=== PATIENT | female | born 1960 | race Two or more races ===

== ENCOUNTER 2016-12-25 19:33 | Inpatient (IN) | payer OTHER ==
[2016-12-25] MEDS ORDERED: NS 1,000 ML IV ONE ×2 (19:42→21:35)
--- NOTE | 2016-12-25 19:49 | EDPHY ---
HPI/HX/ROS/PE/MDM Narrative: CHIEF COMPLAINT: Syncope, headache HPI: The patient is a 56-year-old female with a history of hypertension. She was in her usual state of health until just prior to arrival when she told her daughter she felt dizzy and nauseous then developed severe left-sided headache. Her states that she had a similar headache approximately 2 weeks ago. Daughter states that the patient may have passed out for a brief period of time. On my exam, the patient's only complaint is left-sided headache. She was brought to the emergency department by emergent ambulance for report of isolated ST elevation in 1 lead, but there is no evidence of this on our EKG. REVIEW OF SYSTEMS: Aside from elements discussed in the HPI, a comprehensive 10-point review of systems was reviewed and is negative. PMH: Includes hypertension. No history of stroke. SOCIAL HISTORY: . Denies alcohol or drug abuse. PHYSICAL EXAM: General:Patient is alert, in no acute distress. She appears pale, ill- appearing. ENT:Eyes are normal to inspection. ENT inspection normal. No nystagmus. Neck: Normal inspection. Full range of motion. Respiratory:No respiratory distress. Breath sounds normal bilaterally. Cardiovascular: Regular rate and rhythm. Strong peripheral pulses. Normal cap refill. Abdomen:The abdomen is nontender to palpation. There are no peritoneal signs. There are normal bowel sounds. Back: Normal to inspection. No tenderness to palpation. Skin: Normal color. No rash. Warm and dry. Extremities: Normal appearance. Full range of motion. Neuro:Normal motor function. Normal sensory function. ED Course: Patient treated with IVNS and IV labetolol. On re-evaluation at 10pm, patient still complains of severe headache and feels quite nauseated. On re-evaluation at 10:30pm, patient still with headache but overall skin tone has improved. Admitted patient to Dr. Irizarry at 10:40pm I personally spent a total of 35 minutes of critical care time in obtaining history, performing a physical exam, bedside monitoring of interventions, collecting and interpreting tests and discussion with consultants but not including time spent performing procedures. This time was exclusive of any involvement by Physician Bulldozer Mechanic. Organ system(s) at risk include: GYNECOLOGIST MDM: This patient presents with severe unilateral headache associated with very elevated BP, vomiting and syncope. The underlying etiology is unclear but I see no evidence of ACS given negative ECG and troponin, and CT/CTA of brain is negative for acute stroke or bleed, which fits with lack of focal deficit. Given ongoing symptomatology in setting of poorly controlled HTN, patient requires admission to the hospital. - Data Points Imaging Results: Imaging Impressions Head CT 12/25/16 19:42 Impression: CT head without and with contrast: 1. No acute abnormalities. CTAs: 1. No cervical or intracranial vascular abnormalities. Dr. Downs discussed these findings by telephone with Jozef Bray MD at 21:25. Head CTA 12/25/16 19:42 Impression: CT head without and with contrast: 1. No acute abnormalities. CTAs: 1. No cervical or intracranial vascular abnormalities. Dr. Downs discussed these findings by telephone with Jozef Bray MD at 21:25. Neck CTA 12/25/16 19:42 Impression: CT head without and with contrast: 1. No acute abnormalities. CTAs: 1. No cervical or intracranial vascular abnormalities. Dr. Downs discussed these findings by telephone with Jozef Bray MD at 21:25. Laboratory Results: Laboratory Results 12/25/16 19:40 12/25/16 19:40 12/25/16 12/25/16 12/25/16 19:40 19:40 19:40 WBC RBC Hgb POC Hgb Hct POC Hct MCV MCH MCHC RDW Plt Count MPV Neut % (Auto) Lymph % (Auto) [place] % (Auto) Eos % (Auto) Baso % (Auto) Nucleat RBC Rel Count Absolute Neuts (auto) Absolute Lymphs (auto) Absolute Monos (auto) Absolute Eos (auto) Absolute Basos (auto) Absolute Nucleated RBC Immature Gran % Immature Gran # PT Pending INR Pending APTT Pending POC Sodium Sodium 142 mEq/L mEq/L (134-144) POC Potassium Potassium 3.3 mEq/L L mEq/L (3.5-5.2) POC Chloride Chloride 104 mEq/L mEq/L (97-110) Carbon Dioxide 23 mEq/l mEq/l (22-31) Anion Gap 15 mEq/L mEq/L (8-16) POC BUN BUN 13 mg/dL mg/dL (7-23) Creatinine 0.6 mg/dL mg/dL (0.6-1.0) POC Creatinine Estimated GFR > 60 Glucose 135 mg/dL H mg/dL (70-100) POC Glucose Calcium 9.1 mg/dL mg/dL (8.5-10.4) Total Bilirubin Pending Conjugated Bilirubin Pending Unconjugated Bilirubin Pending AST Pending ALT Pending Alkaline Phosphatase Pending Troponin I < 0.012 ng/mL ng/mL (0.000-0.034) Total Protein Pending Albumin Pending 12/25/16 12/25/16 19:40 19:36 WBC 7.66 10^3/uL 10^3/uL (3.80-9.50) RBC 4.57 10^6/uL 10^6/uL (4.18-5.33) Hgb 13.4 g/dL g/dL (12.6-16.3) POC Hgb 14.6 gm/dL gm/dL (12.6-16.3) Hct 40.5 % % (38.0-47.0) POC Hct 43 % % (38-47) MCV 88.6 fL fL (81.5-99.8) MCH 29.3 pg pg (27.9-34.1) MCHC 33.1 g/dL g/dL (32.4-36.7) RDW 14.5 % % (11.5-15.2) Plt Count 176 10^3/uL 10^3/uL (150-400) MPV 11.8 fL H fL (8.7-11.7) Neut % (Auto) 44.4 % % (39.3-74.2) Lymph % (Auto) 45.2 % H % (15.0-45.0) [place] % (Auto) 6.5 % % (4.5-13.0) Eos % (Auto) 2.9 % % (0.6-7.6) Baso % (Auto) 0.5 % % (0.3-1.7) Nucleat RBC Rel Count 0.0 % % (0.0-0.2) Absolute Neuts (auto) 3.40 10^3/uL 10^3/uL (1.70-6.50) Absolute Lymphs (auto) 3.46 10^3/uL H 10^3/uL (1.00-3.00) Absolute Monos (auto) 0.50 10^3/uL 10^3/uL (0.30-0.80) Absolute Eos (auto) 0.22 10^3/uL 10^3/uL (0.03-0.40) Absolute Basos (auto) 0.04 10^3/uL 10^3/uL (0.02-0.10) Absolute Nucleated RBC 0.00 10^3/uL 10^3/uL (0-0.01) Immature Gran % 0.5 % % (0.0-1.1) Immature Gran # 0.04 10^3/uL 10^3/uL (0.00-0.10) PT INR APTT POC Sodium 143 mEq/L mEq/L (134-144) Sodium POC Potassium 3.1 mEq/L L mEq/L (3.3-5.0) Potassium POC Chloride 106 mEq/L mEq/L (97-110) Chloride Carbon Dioxide Anion Gap POC BUN 14 mg/dL mg/dL (7-23) BUN Creatinine POC Creatinine 0.5 mg/dL L mg/dL (0.6-1.0) Estimated GFR Glucose POC Glucose 140 mg/dL H mg/dL (70-100) Calcium Total Bilirubin Conjugated Bilirubin Unconjugated Bilirubin AST ALT Alkaline Phosphatase Troponin I Total Protein Albumin Medications Given: Discontinued Medications Sodium Chloride (Ns) 1,000 mls @ 0 mls/hr IV EDNOW ONE; Wide Open PRN Reason: Protocol Stop: 12/25/16 19:43 Last Admin: 12/25/16 19:45 Dose: 1,000 mls Sodium Chloride (Ns) 1,000 mls @ 0 mls/hr IV EDNOW ONE; Wide Open PRN Reason: Protocol Stop: 12/25/16 21:36 Last Admin: 12/25/16 21:44 Dose: 1,000 mls Labetalol HCl (Trandate Injection) 10 mg IVP EDNOW ONE Stop: 12/25/16 21:46 Last Admin: 12/25/16 21:47 Dose: 10 mg Ondansetron HCl (Zofran) 4 mg IVP EDNOW ONE Stop: 12/25/16 20:05 Last Admin: 12/25/16 20:05 Dose: 4 mg Point of Care Test Results: 12/25/16 19:36 POC Sodium 143 POC Potassium 3.1 L POC Chloride 106 POC BUN 14 POC Creatinine 0.5 L POC Glucose 140 H General Initial Vital Signs: Initial Vital Signs Heart Rate 69 12/25/16 19:42 Respiratory Rate 20 12/25/16 19:42 Blood Pressure 203/95 H 12/25/16 19:42 O2 Sat (%) 95 12/25/16 19:42 O2 Delivery Mode Nasal Cannula O2 (L/minute) 2 Allergies/Adverse Reactions: No Known Allergies Allergy (Unverified 12/25/16 19:48) Home Medications: Medication Instructions Recorded Enalapril Maleate [Vasotec 20 MG 20 mg PO HS 12/25/16 (*)] Departure - Departure Disposition: [facility] Inpatient Acute Clinical Impression: Headache, Hypertensive emergency Condition: Serious
[2016-12-25] MEDS ORDERED: IOPAMIDOL (ISOVUE 370) 100 ML BTL IV ONE (19:51)
--- NOTE | 2016-12-25 19:53 | CPEKG ---
Heart Rate: 70 RR Interval: 857 P-R Interval: 140 QRSD Interval: 92 QT Interval: 392 QTC Interval: 423 P Chadron: -5 QRS Chadron: -10 T Wave Chadron: 10 EKG Severity - ABNORMAL ECG - EKG Impression: SINUS RHYTHM EKG Impression: LEFT VENTRICULAR HYPERTROPHY Electronically Signed By: Lobo Salcedo 27-Dec-2016 08:09:10
[2016-12-25 19:59] LABS: % IMMATURE GRANULYOCYTES 0.5 % (0.0-1.1); ABSOLUTE IMMATURE GRANULOCYTES 0.04 10^3/uL (0.00-0.10); ADD DIFF? NO; ADD MORPH? NO; ADD SCAN? NO; ATYPICAL LYMPHOCYTE FLAG 10 (0-99); FRAGMENT RBC FLAG 0 (0-99); HEMATOCRIT 40.5 % (38.0-47.0); HEMOGLOBIN 13.4 g/dL (12.6-16.3); LEFT SHIFT FLG 0 (0-99); LIPEMIA HEMOLYSIS FLAG 80 (0-99); MEAN CELL HEMOGLOBIN 29.3 pg (27.9-34.1); MEAN CELL HEMOGLOBIN CONCENTR. 33.1 g/dL (32.4-36.7); MEAN CELL VOLUME 88.6 fL (81.5-99.8); MEAN PLATELET VOLUME 11.8 fL (8.7-11.7); PLATELET CLUMPS FLAG 10 (0-99); PLATELET COUNT 176 10^3/uL (150-400); RED BLOOD CELL COUNT 4.57 10^6/uL (4.18-5.33); RED CELL DISTRIBUTION WIDTH 14.5 % (11.5-15.2)
[2016-12-25] MEDS ORDERED: ONDANSETRON 4 MG/2 ML VIAL ONE (20:04)
[2016-12-25] MEDS ORDERED: ONDANSETRON 4 MG/2 ML VIAL IVP ONE (20:04)
[2016-12-25 20:12] LABS: ANION GAP 15 mEq/L (8-16); CALCIUM 9.1 mg/dL (8.5-10.4); CARBON DIOXIDE 23 mEq/l (22-31); CHLORIDE 104 mEq/L (97-110); CREATININE 0.6 mg/dL (0.6-1.0); GLOMERULAR FILTRATION RATE > 60; GLUCOSE 135 mg/dL (70-100); POTASSIUM 3.3 mEq/L (3.5-5.2); SODIUM 142 mEq/L (134-144)
[2016-12-25 20:24] LABS: TROPONIN I < 0.012 ng/mL (0.000-0.034)
[2016-12-25] MEDS ORDERED: LABETALOL HCL 50 MG/10 ML SYR IVP ONE (21:35)
[2016-12-25] MEDS ORDERED: LABETALOL HCL 5 MG/ML 20 ML MDV IVP ONE (21:45)
[2016-12-25] MEDS ORDERED: ACETAMINOPHEN 325 MG TAB PO PRN (22:39)
[2016-12-25] MEDS ORDERED: ONDANSETRON DISINTEGRATING 4 MG TAB PO PRN (22:39)
[2016-12-25 22:41] LABS: APTT 27.5 SEC (23.0-38.0); INR 0.95 (0.83-1.16); PROTIME(PATIENT) 12.6 SEC (12.0-15.0)
[2016-12-25 22:42] LABS: ALBUMIN 4.6 g/dL (3.5-5.0); BILIRUBIN,TOTAL 0.3 mg/dL (0.1-1.4); BILIRUBIN-CONJUGATED 0.2 mg/dL (0.0-0.5); BILIRUBIN-UNCONJUGATED 0.1 mg/dL (0.0-1.1); TOTAL PROTEIN 7.5 g/dL (6.3-8.2)
--- NOTE | 2016-12-25 23:46 | GHP ---
[f rep st] HISTORY AND PHYSICAL DATE OF ADMISSION: 12/25/2016 CHIEF COMPLAINT: Headache. Syncope. HISTORY OF PRESENT ILLNESS: A 56-year-old female with a history of hypertension on single agent bloo d pressure medications that were recently changed in the last 3-4 weeks. Patient cannot accurately t ell me when she was taking before but is now taking daily enalapril. Reports being in her normal sta te of health for the several days preceding presentation. On the evening of presentation around 6:30 p.m., patient developed a headache and a tired feeling. The headache progressed over the course of the next hour or so, resulted in some nausea, dizziness and a syncopal episode. Headache was describ ed as left-sided. She did not develop any specific vision changes. No numbness. No tingling. No w eakness. Family called the EMS and the patient was brought to the emergency department for evaluatio n. In the ED, she denies any chest pain, shortness of breath, palpitations, abdominal discomfort, ch anges in her bowel habits, dysuria, lower extremity edema, fevers, chills or recent sick contacts. PAST MEDICAL HISTORY: Hypertension. SOCIAL HISTORY: She is . Denies alcohol, tobacco or illicit drugs. FAMILY HISTORY: Positive for hypertension. REVIEW OF SYSTEMS: A 10-point review of systems is negative with the exception what was reported in the HPI. PHYSICAL EXAMINATION: VITAL SIGNS: The patient presented with systolic blood pressure 217/108. Hea rt rate 76. Respiratory rate is 16. Satting 99% on 2 L. 36.5. GENERAL: This is an obese-appearin g, female in no acute distress. HEENT: Notable for moist mucous membranes. Eyes: Negativ e for any icterus. CARDIAC: Patient is regular rate and rhythm. PULMONARY: Clear to auscultation bilaterally. GASTROINTESTINAL: Positive bowel sounds. ABDOMEN: Obese but soft and nontender. MUS CULOSKELETAL: Negative for any lower extremity edema. SKIN: Negative for any rashes. NEUROLOGIC: Patient's strength is bilateral 5/5. Sensation is intact throughout. Cranial nerves 2-12 are gross ly intact. Gait was not examined. PSYCHIATRIC: She is pleasant and cooperative on interview and ex amination. LABORATORY: White count 7.6, hematocrit 40.5, platelets of 176. Creatinine is 0.6. Blood glucose o f 140. Potassium of 3.3. Troponin less than 0.012. Noncontrast CT of the head, which I personally reviewed and interpreted, shows no acute findings. CTA of the head and neck show no acute findings. EKG, which I personally reviewed and interpreted, shows a sinus rhythm with no acute ST-T changes. ASSESSMENT AND PLAN: This is a 56-year-old female presenting with headache and syncope. 1. Hypertensive urgency. Patient presented with systolic blood pressures in the 200s, associated he adache. She has received 1 dose of labetalol 10 IV in the emergency department. Her blood pressures are back to the 160s. High suspicion that the patient's enalapril is simply not potent enough to ke ep her blood pressures down. Would use labetalol as it is a medication that we can up-titrate over t jose for her as her antihypertensive needs increase. We will initiate 100 mg b.i.d. in the morning. Can use oral doses this evening if she redevelops elevated blood pressures overnight. We will admit to telemetry for close monitoring. 2. Syncope. Based on the history, it sounds most related to the severe nausea and headache she was having at that time. Neurologic imaging is unconcerning for an acute neurologic episode. We will mo nitor the patient on the PCU on telemetry. Follow her physical exam with improved blood pressure con geraldine. Have written for p.r.n. pain medications as well as antiemetics. 3. Hyperglycemia. We will add hemoglobin A1c to the patient's morning labs. 4. Prophylaxis with Lovenox. DIET: Cardiac. DISPOSITION: I expect less than 2 midnights if the patient responds well to titration of her blood p ressure regimen. We will admit as observation to the PCU. I have discussed the case with the emerge ncy room physician. Patient will be triaged to the PCU for cardiac monitoring and cardiac medication s. /[id number]/MODL
[2016-12-25] MEDS: ONDANSETRON 4 MG/2 ML VIAL IVP PRN (23:51)
[2016-12-26 04:37] LABS: COLOR YELLOW; LEUKOCYTE ESTERASE,URINE NEGATIVE (NEGATIVE); NITRITE,URINE NEGATIVE (NEGATIVE)
[2016-12-26] MEDS: ONDANSETRON 4 MG/2 ML VIAL IVP PRN ×3 (04:44→15:56)
[2016-12-26 05:53] LABS: TROPONIN I < 0.012 ng/mL (0.000-0.034)
[2016-12-26 06:00] LABS: ANION GAP 13 mEq/L (8-16); CALCIUM 8.7 mg/dL (8.5-10.4); CARBON DIOXIDE 23 mEq/l (22-31); CHLORIDE 105 mEq/L (97-110); CREATININE 0.5 mg/dL (0.6-1.0); GLOMERULAR FILTRATION RATE > 60; GLUCOSE 114 mg/dL (70-100); POTASSIUM 4.1 mEq/L (3.5-5.2); SODIUM 141 mEq/L (134-144)
[2016-12-26] MEDS: HYDROCODONE/APAP 5/325 TAB PO PRN ×3 (06:24→15:52)
[2016-12-26] MEDS: LABETALOL HCL 100 MG TAB PO SCH (06:24)
[2016-12-26] MEDS ORDERED: LABETALOL HCL 100 MG TAB PO SCH (09:00)
[2016-12-26] MEDS: ENOXAPARIN 40 MG/0.4 ML SYR SC SCH (09:16)
--- NOTE | 2016-12-26 11:21 | HOSPPROG ---
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 Syncopal event likely due to CVA. -transfer to stroke unit (no bed on 3N, going to SDU) -monitor on telemetry -echo without e/o thrombus -had CTA head/neck yesterday, carotids are patent -Full dose ASA now and cont daily -Add statin and check lipids -Neurology consult -PT/OT, speech evals (NPO until passes swallow) Hypertensive emergency - initially treated with PO Labetalol. -will allow permissive hypertension given acute/subacute CVA -PRN labetalol for sbp >220 / dbp >120 -begin BP lowering tomorrow pending neurology recs DVT PPLX - Lovenox Full code Dispo - change to inpt for ongoing management of acute / subacute CVA, transferred to SDU Subjective: Pt is dizzy, continues to have N/V. States she feels like she is floating and dizziness worse with attempts at ambulation. +blurred vision. Objective: Vital Signs Temp Pulse Resp BP Pulse Ox 36.8 C 66 14 155/79 H 87 L 12/26/16 08:00 12/26/16 10:15 12/26/16 08:00 12/26/16 10:15 12/26/16 10:15 Laboratory Results 12/26/16 04:10 12/25/16 12/26/16 12/27/16 05:59 05:59 05:59 Intake Total 2100 Output Total 690 400 Balance 1410 -400 PT 12.6 SEC (12.0-15.0) 12/25/16 19:40 INR 0.95 (0.83-1.16) 12/25/16 19:40 - Physical Exam Constitutional: uncomfortable Eyes: PERRL Ears, Nose, Mouth, Throat: moist mucous membranes Cardiovascular: regular rate and rhythym, no murmur, rub, or gallop Respiratory: no respiratory distress, clear to auscultation Gastrointestinal: normoactive bowel sounds, soft, non-tender abdomen Skin: warm Musculoskeletal: abnormal gait Neurologic: AAOx3, other (No facial droop, pronator drift negative, 5/5 muscle strength b/l UE's and LE's) ICD10 Worksheet Patient Problems: Problems Problem Status Onset Headache Acute Hypertensive emergency Acute
[2016-12-26] MEDS: ATORVASTATIN CALCIUM 40 MG TAB PO SCH (13:13)
[2016-12-26] MEDS: ASPIRIN 325 MG TAB PO SCH (13:13)
[2016-12-26 14:11] LABS: CHOLESTEROL 197 mg/dL (140-220); CHOLESTEROL/HDL RATIO 3.18 RATIO (1.00-4.44); HIGH DENSITY LIPOPROTEIN 62 mg/dL (40-85); LDL/HDL RATIO 2.02 RATIO (1.00-3.22); LOW DENSITY LIPOPROTEIN 125 mg/dL (80-100); NON-HIGH DENSITY LIPOPROTEIN 135 mg/dL (90-129); TRIGLYCERIDE 52 mg/dL (35-135); VERY LOW DENSITY LIPOPROTEINS 10 mg/dL (8-25)
--- NOTE | 2016-12-26 14:55 | ASMTCMCOM ---
CM Note CM Note Notes: Pt is a 56 y/o female admitted w/ hypertension, dizziness and nausea. CM consulted w/ VERO Asher regarding pts care. PT/OT are ordered and awaiting recommendations. CM to follow. Date Signed: 12/26/2016 02:54 PM Electronically Signed By:SULEMAN Villalobos
--- NOTE | 2016-12-26 16:56 | ECHO ---
[email or web address] [address] [address] Main: [phone] Fax: Transthoracic Echocardiogram Name: ABENA ZAIDI MR#: [id number] Study Date: 12/26/2016 Study Time: 02:38 PM Date of : 1960 Age: 56 year(s) Height: 157.5 cm (62 in.) Weight: 86.18 kg (190 lb.) BSA: 1.87 m2 Gender: Female Examination: Echo with Agitated Saline Indication: CVA r/o PFO Image Quality: Contrast: I.V. dose of agitated saline Requested by: Radha Maria BP: 164 mmHg/99 mmHg Heart Rate: 64 bpm Rhythm: Indication: CVA r/o PFO Procedure Staff Head Coach: Anna Bravo Reading Physician: Annetta Sanchez Conclusions: Normal size left ventricle. Normal global systolic LV function. EF calculated at 65 %. No regional wall motion abnormality. An agitated saline study was performed and was negative for intracardiac shunting. Trivial to mild mitral regurgitation. Pulmonary artery pressure is not obtained due to inadequate TR jet. There is no previous echocardiogram for comparison. No obvious cardiac source of embolism Measurements: Chambers Valvular Assessment AV/MV Valvular Assessment TV/PV Normal Normal Normal Name Value Range Name Value Range Name Value Range Ao Hortencia (MM): 3.2 cm (2.2 cm-3.7 AV Vmax: 1.60 m/s (1 m/s-1.7 PV Vmax: 1.09 cm/s (0.6 m/s-0.9 cm) m/s) m/s) IVSd (2D): 1.2 cm (0.6 cm-1.1 AV maxP mmHg ( - ) PV PGmax: 5 mmHg ( - ) cm) LVOT Vmax: 1.14 m/s (0.7 m/s-1.1 LVDd (2D): 3.9 cm (3.9 cm-5.3 m/s) cm) MV E Vmax: 0.93 cm/s ( - ) LVDs (2D): 2.7 cm (2.1 cm-4 MV A Vmax: 1.12 cm/s ( - ) cm) MV E/A: 0.83 ( - ) LVPWd (2D): 1.0 cm ( - ) LVEF (BP): 65 % (>=55 %) RVDd(2D): 2.9 cm (1.9 cm-3.8 cmmm) Continued Measurements: Chambers Valvular Assessment AV/MV Name Value Name Value Patient: ABENA ZAIDI Study Date: 12/26/2016 Page 1 of 2 02:38 PM LA Area: 22.9 cm2 MV DecTime: 182 LA Volume: 56 ml MV E/E' Septal: 20.30 LA Volume Index: 29.9 ml/m2 MV E/E' Lateral: 13.20 RA Area: 12.0 cm2 Additional Vessels Name Value Ao Ascendin.1 cm Findings: Left Ventricle: Normal size left ventricle. Normal global systolic LV function. Prominient papillary muscle noted. EF calculated at 65 %. No regional wall motion abnormality. Right Ventricle: Normal size right ventricle. Normal RV function. Left Atrium: The left atrium is normal in size. An agitated saline study was performed and was negative for intracardiac shunting. Right Atrium: The right atrium is normal in size. Mitral Valve: The mitral valve is normal in appearance. Trivial to mild mitral regurgitation. Aortic Valve: The aortic valve is tri-leaflet and functions normally. There is no aortic valve regurgitation. Tricuspid Valve: The tricuspid valve appears normal. There is no significant tricuspid valve regurgitation. Pulmonary artery pressure is not obtained due to inadequate TR jet. Pulmonic Valve: Pulmonary valve not well visualized. Pericardium: No pericardial effusion. (No Signature Object) Patient: ABENA ZAIDI Study Date: 12/26/2016 Page 2 of 2 02:38 PM [id number]
[2016-12-26] MEDS ORDERED: ONDANSETRON 4 MG/2 ML VIAL IVP PRN (19:40)
[2016-12-26] MEDS ORDERED: PROMETHAZINE HCL 25 MG/ML INJ IVP PRN (19:40)
[2016-12-26] MEDS: HYDROmorphONE/DILAUDID 2 MG/ML INJ IVP PRN ×2 (19:56→23:12)
[2016-12-27] MEDS: HYDROmorphONE/DILAUDID 2 MG/ML INJ IVP PRN (05:50)
[2016-12-27] MEDS: ONDANSETRON 4 MG/2 ML VIAL IVP PRN (08:36)
--- NOTE | 2016-12-27 08:37 | HOSPPROG ---
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 Carotids patent. Pt seen and examined with Neurology this am. Query embolic source with multiple sites. -cont to monitor on telemetry -echo without e/o thrombus -Cont ASA, statin -Dexamethasone started by Neurology -PT/OT Hypertension - Permissive hypertension yesterday. Discussed with neurology, who recommends normal BP control at this point. -Resume PO Labetalol, which is a new med for her -Cont outpt Enalapril -Goal BP <140/90 Headache / Tonsillar herniation - Increased pain today. Has known chiari malformation. -STAT head CT this am without contrast neg for bleed, but now with tonsillar herniation ?due to edema from cerebellar stroke + chiari malformation -Neurosurgery consulted upon receiving CT results Poor oral intake - passed swallow eval, but not eating due to N/V -start maintenance fluids DVT PPLX - Lovenox Full code Dispo - change to inpt for ongoing management of acute / subacute CVA, now with tonsillar herniation Subjective: Pt c/o increased headache, double vision, ongoing N/V. Nausea worse when she opens her eyes. Unable to ambulate. Not eating/drinking due to nausea. No fevers. Objective: Vital Signs Temp Pulse Resp BP Pulse Ox 37.4 C 58 L 12 165/65 H 97 12/27/16 08:00 12/27/16 08:00 12/27/16 08:00 12/27/16 08:00 12/27/16 08:00 12/26/16 12/27/16 12/28/16 05:59 05:59 05:59 Intake Total 240 Output Total 25 Balance 215 PT 12.6 SEC (12.0-15.0) 12/25/16 19:40 INR 0.95 (0.83-1.16) 12/25/16 19:40 - Physical Exam Constitutional: uncomfortable Eyes: PERRL Ears, Nose, Mouth, Throat: moist mucous membranes Cardiovascular: regular rate and rhythym Respiratory: no respiratory distress, clear to auscultation Gastrointestinal: normoactive bowel sounds Musculoskeletal: full muscle strength Neurologic: AAOx3, other (+diplopia in all visual posadas, sensation intact, 5/5 muscle strength UE's and LE's) Psychiatric: interacting appropriately ICD10 Worksheet Patient Problems: Problems Problem Status Onset Headache Acute Hypertensive emergency Acute
[2016-12-27] MEDS ORDERED: *PHM DO NOT USE-DEXAMETHASONE 0.2 MG/ML IV PED/NEWBORN SYR IV SCH (09:00)
[2016-12-27] MEDS: DEXAMETHASONE 4 MG/ML VIAL IVP SCH ×2 (09:14→21:04)
[2016-12-27] MEDS: GABAPENTIN 100 MG CAP PO SCH ×4 (09:15→21:04)
[2016-12-27] MEDS: POTASSIUM Cl (KCl) 20 MEQ in D5W NS 1,000 ML IV SCH ×2 (09:15→18:05)
--- NOTE | 2016-12-27 09:57 | GCON ---
[f rep st] CONSULTATION NEUROLOGIC CONSULTATION REFERRING PHYSICIAN: Gela Irizarry MD HISTORY: The patient is a 56-year-old woman who I am asked to see in neurologic consultation for str jah. She presented to the emergency room on December 25. She has a history of hypertension, and ap parently has had some recent changes in medications. She had been doing well prior to the evening of presentation, which was 2 evenings ago. At 6:30 p.m. she had significant headache and feeling tired . Within an hour she was having nausea, dizziness, and had an episode of loss of consciousness. Pre dominantly left-sided headache without any clear-cut exacerbating or alleviating factors. She was no t initially complaining of any vision problems, but now she says she has feelings of dizziness associ ated with double vision when she moves her eyes in most directions of gaze. She had not had any rece nt trauma or illness. She was not noticing weakness. EMS was called, and she was brought to the [facility] room for evaluation. Her 10-point review of systems is negative, including no chest pain, pal pitations, or shortness of breath. Since hospitalization she has continued to have ongoing symptoms with increasing headache and increasing pain episodes that come in waves of sharp intense pains, whic h can be diffuse. She initially had a head CT obtained, and this was unremarkable, and CT angiogram showed no acute findings. Subsequent imaging with brain MRI shows evidence of acute stroke involving predominantly the left pos terior cerebellum, and a small amount of change in the right occipital lobe. She has a Chiari malfor mation, which has been seen in the past. Compared to 2005, there is no significant change. She has empty sella syndrome as well. PAST MEDICAL HISTORY: Notable for hypertension. 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 FAMILY HISTORY: Hypertension. SOCIAL HISTORY: She is . No smoking, drug use, or alcohol. MEDICATIONS: Prior to admission: Enalapril 20 mg at night. In the hospital she is getting p.r.n. n ausea medications, as well as hydrocodone as needed or Dilaudid IV as needed for pain. Aspirin, Lipi tor. ALLERGIES: No known drug allergies. PHYSICAL EXAM: VITAL SIGNS: The blood pressure is 165/65, pulse of 58, respirations 12, temperature 37.4. Her original blood pressure in the first several hours of coming in on the was as high a s 217 systolic. GENERAL: Well developed, overweight, in no acute distress. NECK: Supple with no b ruits or masses. CARDIAC: Regular rate and rhythm. No murmur. NEUROLOGIC: The patient's NIH stro ke scale is 0. Pupils are 3 mm and reactive. Funduscopic exam, I cannot view adequately. No obviou s visual field loss. Extraocular movements are intact, although she complains of double vision in se veral directions of gaze. Normal facial sensation and strength. Palate elevates symmetrically. Ton emanuel protrudes midline. Hearing is preserved. No weakness of head turning or shoulder shrug, but mov ements generate nausea and increasing headache. Motor exam reveals normal muscle bulk and tone with 5/5 strength, and no abnormal movements. She moves very slowly on finger to nose, but she is not elan xic in the upper extremities. I did not assess her gait due to the [facility], but it was reported yesterday that she would move slowly and a little bit ataxic. Reflexes ar e 1+ and symmetric with no pathologic reflexes. Sensation in the extremities is intact for temperatu re and light touch. LABORATORY DATA: Diagnostic studies as outlined above with unremarkable CBC, normal INR. Unremarkab le chemistries with LDL cholesterol of 125. Unremarkable urinalysis. She has also had echocardiogram. This study shows normal ejection fraction, and no evidence of an in tracardiac shunt on bubble study. No significant valvular anomalies. IMPRESSION: The patient has experienced an acute ischemic stroke predominantly in the left cerebellu m, but also a small amount in the right occipital region. As to whether this is a local thrombosis v ersus embolic phenomenon, it is hard to say for sure. It certainly posterior circulation distributio n. We do not see evidence of a dissection despite the acute pain she is having. A percentage of str okes definitely have significant headache, and I think that is why she has this headache. Because it is in the posterior circulation with cerebellum involved, we will obtain a repeat head CT this kody dawkins to make sure there is not any significant edema occurring. Her headaches are further potentially triggered by having a Chiari malformation. This is not a new problem, but in the setting of an acute stroke some of the increased pressure might be contributing as well. For this episodic, sharp pain I am going to add gabapentin 100 mg 3 times per day. With the fact that she has the Chiari malformat ion, I am going to give her a few doses of Decadron to see if that also calms down any associated swe lling that might be occurring. We will continue to monitor her closely for any significant clinical changes. I spoke with her via the wet end operator, and her was present as well, and I discussed t hat the anticipation is for gradual improvement of this, but we will have to spend some time helping her with the symptoms that she is getting through this acute phase. I agree with antiplatelet therap y at this point. /[id number]/MODL
[2016-12-27] MEDS: ATORVASTATIN CALCIUM 40 MG TAB PO SCH (12:15)
[2016-12-27] MEDS: ENOXAPARIN 40 MG/0.4 ML SYR SC SCH (12:15)
[2016-12-27] MEDS: ASPIRIN 325 MG TAB PO SCH (12:15)
--- NOTE | 2016-12-27 13:25 | NEUROPROG ---
Assessment: Pt is better since decadron and gabapentin with mild headache not having significant nausea currently and equal pupils, no diplopia. CT shows more edema and some 4th ventricle compression. I want to consult neurosurgery in case there is need for decompression if swelling gets worse especially with known Chiari. Objective: Vital Signs Temp Pulse Resp BP Pulse Ox 37.4 C 64 20 162/71 H 100 12/27/16 08:00 12/27/16 12:00 12/27/16 12:00 12/27/16 12:00 12/27/16 12:00 12/26/16 12/27/16 12/28/16 05:59 05:59 05:59 Intake Total 240 Output Total 25 Balance 215 PT 12.6 SEC (12.0-15.0) 12/25/16 19:40 INR 0.95 (0.83-1.16) 12/25/16 19:40 Allergies/Adverse Reactions: No Known Allergies Allergy (Unverified 12/25/16 19:48)
--- NOTE | 2016-12-27 14:00 | GCON ---
[f rep st] CONSULTATION NEUROSURGERY CONSULTATION NOTE CHIEF COMPLAINT: Worsening headaches post cerebellar and occipital stroke. HISTORY OF PRESENT ILLNESS: This is a 56-year-old female with a history of hypertension, who present ed to the [facility] ER on 12/25/2016 with development of a headache and a tired feeling. The headache progressed over the next hour or so and resulted in some dizziness and nausea and a syncopa l episode as well. She denied any vision changes. The family called EMS services and the patient wa s brought to the emergency department where a noncontrast head CT was performed and showed no acute f indings and a CT of the head and neck were also performed which showed no acute findings, however, an MRI of the brain was then performed and showed a subacute infarct involving the posterior half of th e cerebellum on the left as well as a small linear focus anteriorly and an additional subacute smalle r cortical infarct on the right occipital lobe posteriorly. Also incidentally found was a note of a Chiari 1 malformation. She has been seen by the hospitalist service and has been admitted here for t he last 2 days for management of this stroke. However, this morning she started having a worsening o f headache and an episode of emesis and a repeat head CT was performed this morning over concern for possible increase in bleeding or hydrocephalus. On my consultation, currently the patient is resting comfortably. Her states that this morning she started having worsening headache with 1 epis ode of emesis. He states that she has since then finally been able to rest a few hours. When I talk to the patient, she states that she just has a pounding headache. She denies any vision changes, an y numbness, tingling, weakness in her arms or legs. She denies any nausea at the moment. She and he r deny any increasing somnolence. REVIEW OF SYSTEMS: All pertinent positive and negative review of systems were reviewed and are as st ated in the HPI. PAST MEDICAL HISTORY: Consistent for hypertension and headaches. CURRENT MEDICATIONS: Include enalapril maleate also known as Vasotec 20 mg p.o. h.s. FAMILY HISTORY: Significant for hypertension. SOCIAL HISTORY: Patient is with her at the bedside today. She is mostly Cymro-spe aking but does understand some Turkmen and he is translating for her today. She denies any alcohol u se, any tobacco use or any other illicit drug use. OBJECTIVE: VITAL SIGNS: Blood pressure 162/71, heart rate 64, respiratory rate 20, O2 sat is 100% o n 2 L by nasal cannula. HENT: Head is normocephalic, atraumatic. GENERAL: The patient is alert to person, place, and year. She is somewhat somnolent but is awake for my exam and awake and alert the whole time. She is conversing appropriately. Her is translating for her. EYES: Pupils ar e equal, react to light and accommodation. Extraocular muscles are intact. NEUROLOGIC: Cranial ner ves 2-12 are grossly intact. Tongue protrusion is midline. Uvula is midline. Palate rises symmetri tonia. Accessory muscles are 5/5 and equal in strength and sensation is intact in all dermatomal dis tribution of the face. Bilateral upper extremities are 5/5 and equal in strength in all muscle group s including deltoids, biceps, triceps, wrist extensors, flexors, interossei and business office technician, and bilateral l ower extremities are 5/5 in all muscle groups including quadriceps, hamstrings, dorsiflexion, plantar flexion, EHL. Babinski is negative and toes are downgoing. She has a negative pronator drift. Sen sation is intact over the neural dermatomal distribution of the body. Deep tendon reflexes are 2+ bi laterally in the patella and biceps. LABORATORY DATA: Labs reviewed taken on December 25, 2016 reveal a white blood cell count of 7.66, red blood cell count 4.57, hemoglobin 13.4, hematocrit 40.5, platelets 176. INR of 0.95, PT 12.6, an d APTT of 27.5. A sodium of 141, potassium 4.1, chloride 105, carbon dioxide 23, anion gap 13, BUN 8 , creatinine 0.5, glucose 114, calcium 8.7. Troponin less than 0.12. DIAGNOSTIC IMAGING REVIEW: Images taken on 12/25/[address] without contrast that initial ly showed no acute findings. A cervical CTA showed stenosis of the carotid bulb, is measured based a t the NASCET criteria area of maximal stenosis compared to the cervical ICA distal to the bulb. Cervical CTA: No cervical or intracranial vascular abnormality. A head CTA was performed on 12/25/2016 and it shows no acute abnormalities. A brain MRI was performed on 12/26/2016 that shows: 1. A subacute infarct involving the posterior half of the cerebellum on the left as well as a smalle r linear focus anteriorly and additional subacute smaller cortical infarct right occipital lobe poste riorly. 2. Chiari 1 malformation is noted. 3. Stable appearance of the pituitary flattened against the floor of mildly prominent sella, compati ble with empty sella. A head CT performed on 12/27/2016 was performed due to increase in headaches and somnolence and shows : 1. A subacute infarct in the left cerebral hemisphere and right occipital lobe with mass effect of t he 4th ventricle. 2. Prior Chiari 1 malformation with possible superimposed tonsillar herniation. 3. No acute hemorrhage or hydrocephalus. ASSESSMENT AND PLAN: This is a 56-year-old female presenting 2 days ago with increasing headaches an d dizziness and was found on MRI to have a subacute infarct involving the posterior half of the cereb ellum on the left as well as a subacute smaller cortical infarct on the right occipital lobe posterio rly. This morning she had an increase of headaches and somnolence, and therefore, a repeat head CT w as performed. This head CT was reviewed by Dr. England as well and shows no evidence of hydrocephalus or a midline shift or any other new acute findings. The patient on my exam today reveals that she is neuro intact. She is having a worsening headache today which can be normal from her stroke and we w ill continue to watch her closely. I did discuss this with the and stated that should she be come more somnolent or have any increase in headaches we would likely repeat imaging to look for any evidence of hydrocephalus or any swelling. In this case, we would elect to do a surgical suboccipita l craniotomy for decompression. However, at this time, no neurosurgical intervention is indicated. We would suggest continuing q.2 hours neuro checks at this time. She will continue to follow up with her stroke management per Neurology. Any other questions or concerns, please contact Neurosurgery. The patient was seen by Dr. Joselito England as well at approximately 12:30 p.m. Any other questions or concerns or any changes in her neuro exam, please contact Neurosurgery immediately. /[id number]/MODL
[2016-12-27] MEDS: LABETALOL HCL 100 MG TAB PO SCH (21:04)
[2016-12-27] MEDS: ENALAPRIL MALEATE 20 MG TAB PO SCH (21:04)
[2016-12-28] MEDS: HYDROmorphONE/DILAUDID 2 MG/ML INJ IVP PRN (05:50)
[2016-12-28 06:27] LABS: ANION GAP 11 mEq/L (8-16); CALCIUM 8.8 mg/dL (8.5-10.4); CARBON DIOXIDE 24 mEq/l (22-31); CHLORIDE 108 mEq/L (97-110); CREATININE 0.5 mg/dL (0.6-1.0); GLOMERULAR FILTRATION RATE > 60; GLUCOSE 129 mg/dL (70-100); SODIUM 143 mEq/L (134-144)
--- NOTE | 2016-12-28 08:17 | NEUSURGPN ---
Assessment/Plan: A: 56 yo F with left cerebellar and right occipital stroke P: -Repeat HCT done this am, report pending, appears stable overall -Q2 hour neuro checks, monitor for any increased somnolence or worsening headaches -Stroke management per neurology -Would require suboccipital craniotomy if she develops worsening hydrocephalus -Pt d/w Dr England -Call NS with any neuro changes Subjective: Pt resting in bed, pt states she slept well. Per RN her headache this AM began after turning lights on in room and going down to CT. Objective: Awake and alert NAD VSS CN II-XII grossly intact MAEx4 Motor 5/5 BUE/BLE Urinary Catheter in Place: No - Physician Discussed Patient with : [facility] Physical Exam - Vitals, I&O, Labs I and O 12/27/16 12/28/16 12/29/16 05:59 05:59 05:59 Intake Total 240 2803 Output Total 25 350 Balance 215 2453 Weight 91 kg Intake: Oral (ml) 240 500 IV Infused (ml) 2303 POTASSIUM Cl (KCl) 20 meq 2303 In D5w Ns 1,000 ml @ 125 mls/hr IV CONT TOMAS Rx#: [id number] Output: Urine (ml) 350 Bedpan 350 Emesis (ml) 25 Other: Number of Voids Bedpan 1 4 Vital Signs Temp Pulse Resp BP Pulse Ox 36.7 C 50 L 20 133/63 H 99 12/28/16 07:28 12/28/16 07:28 12/28/16 07:28 12/28/16 07:28 12/28/16 07:28 Laboratory Results 12/28/16 06:00 ICD10 Worksheet Patient Problems: Problems Problem Status Onset Headache Acute Hypertensive emergency Acute Stroke due to embolism of cerebellar artery Acute
--- NOTE | 2016-12-28 10:01 | NEUROPROG ---
Assessment: BACKGROUND: 56 year old right-handed woman with a hx of HTN admitted for episode of posterior headache, nausea, dizziness and episode of LOC. Found to have left cerebellar and right occipital cortex acute ischemic stroke. INTERVAL HISTORY: Visit facilitated by excellent nursing iranian language translation. Still with posterior headache, though a little better with gabapentin and dexamethasone. Denies nausea/vomiting, vision loss, double vision, LOC. No new weakness, sensory loss, language/speech problems, ataxia. Hearing without change. EXAM: VS reviewed in EMR. SBPs 100s - 170s last 24h NIHSS 0 DATA: LDL 125 A1c 6 TTE no mass/shunt PERSONALLY REVIEWED/INTERPRETED DATA: MRI brain wo - acute ischemia in the left PICA territory and right occipital cortex, incidental Chiari I CTA head/neck - patent vessels CT head wo 12/28 - stable cerebellar edema without change in compression of the 4th ventricle IMPRESSION: // ACUTE ISCHEMIC STROKE // CEREBELLAR EDEMA FROM ISCHEMIC STROKE // POST-STROKE WALSH // HTN Patient with ischemic stroke of the left PICA territory of the cerebellum and the right occipital cortex. CTA showed patent posterior circulation. Pattern invokes a sense of embolism, perhaps cardioembolism into the left vertebral artery with distal movement to the basilar and the right TESTER WAFER SUBSTRATE, but similar means of embolic transit could have happened from large artery-to- artery embolization. No evidence of PFO on TTE, so paradoxical embolization ruled out. She is entering peak edema window and is high risk with posterior fossa location of stroke with evidence of early edema and mass effect on the 4th ventricle. - cont ICU monitoring with q2h neuro checks - cont current antiplatelet - goal normotension - intervene for sustained SBPs > 160 - statin for LDL goal < 70 - A1c at goal < 6.5 - cont gabapentin and dexamethasone for post-stroke WALSH - maintain euvolemia and normothermia, avoid hypoglycemia - keep HOB at 30 degrees - appreciate neurosurgery availability if needed for emergent suboccipital decompression - PT/OT/CONSTRUCTION IRONWORKER HELPER consults - stroke education - family, patient, nursing advised to call for any clinical change, especially decreased LOC, nausea/vomiting, increasing WALSH, diplopia, ataxia or anything of clinical concern - this should trigger emergent repeat CT head wo to assess for progression of cerebellar edema Patient is critically ill with ischemic stroke and cerebellar edema - at high risk for clinical deterioration that could result in further brain dysfunction. 45 mins CC time. Objective: Vital Signs Temp Pulse Resp BP Pulse Ox 36.7 C 50 L 20 133/63 H 99 12/28/16 07:28 12/28/16 07:28 12/28/16 07:28 12/28/16 07:28 12/28/16 07:28 Laboratory Results 12/28/16 06:00 12/27/16 12/28/16 12/29/16 05:59 05:59 05:59 Intake Total 240 2803 Output Total 25 350 Balance 215 2453 PT 12.6 SEC (12.0-15.0) 12/25/16 19:40 INR 0.95 (0.83-1.16) 12/25/16 19:40 Allergies/Adverse Reactions: No Known Allergies Allergy (Unverified 12/25/16 19:48)
[2016-12-28] MEDS: LABETALOL HCL 100 MG TAB PO SCH ×2 (10:03→20:15)
[2016-12-28] MEDS: GABAPENTIN 100 MG CAP PO SCH ×3 (10:03→20:16)
[2016-12-28] MEDS: ASPIRIN 325 MG TAB PO SCH (10:03)
[2016-12-28] MEDS: ATORVASTATIN CALCIUM 40 MG TAB PO SCH (10:03)
[2016-12-28] MEDS: ENOXAPARIN 40 MG/0.4 ML SYR SC SCH (10:04)
[2016-12-28] MEDS: DEXAMETHASONE 4 MG/ML VIAL IVP SCH ×2 (10:04→20:16)
[2016-12-28] MEDS: POTASSIUM Cl (KCl) 20 MEQ in D5W NS 1,000 ML IV SCH (11:45)
--- NOTE | 2016-12-28 15:47 | ASMTCMCOM ---
CM Note CM Note Notes: PT/OT recommending inpt rehab. Inpt rehab is following and will re-assess on Saturday. CM will continue to follow. Date Signed: 12/28/2016 03:46 PM Electronically Signed By:LYLE Monet
--- NOTE | 2016-12-28 16:26 | HOSPPROG ---
Hospitalist Progress Note Assessment/Plan: Subacute cerebellar and right occipital lobe CVA - Now with cerebellar edema / tonsillar herniation. Has known chiari malformation which may be contributing. Headached improved with gabapentin and dex. At risk for worsening edema, neurosurgery following. CTA neg, stroke confirmed on MRI. Carotids patent. Query embolic source with multiple sites. No A fib on tele, personally reviewed and interpreted. D/W neuro. -cont SDU, neurochecks -cont to monitor on telemetry -echo without e/o thrombus -Cont ASA, atorvastatin 80 -cont dexamethasone -stat CT for any acute neurologic changes and page neurosurgery -PT/OT Hypertension - Aiming for normotension, Goal BP <140/90 -Cont Labetalol, Enalapril -PRN IV Labetalol for SBP >160 Poor oral intake - passed swallow eval, appetite improved -dc IVF's DVT PPLX - Lovenox Full code Dispo - cont inpt for ongoing management of acute / subacute CVA, now with tonsillar herniation. Stay in SDU another night due to risk for increasing cerebellar swelling and herniation. Likely transfer to tomorrow if remains stable. Subjective: Pt feels better. Headache improved. No N/V this am. Able to open her eyes. Still dizzy with ambulation. No fevers. Objective: Vital Signs Temp Pulse Resp BP Pulse Ox 37.1 C 66 16 154/71 H 95 12/28/16 12:00 12/28/16 14:00 12/28/16 14:00 12/28/16 14:00 12/28/16 14:00 Laboratory Results 12/28/16 06:00 12/27/16 12/28/16 12/29/16 05:59 05:59 05:59 Intake Total 240 2803 Output Total 25 350 Balance 215 2453 PT 12.6 SEC (12.0-15.0) 12/25/16 19:40 INR 0.95 (0.83-1.16) 12/25/16 19:40 - Physical Exam Constitutional: no apparent distress Eyes: PERRL Ears, Nose, Mouth, Throat: moist mucous membranes Cardiovascular: regular rate and rhythym, no murmur, rub, or gallop Respiratory: no respiratory distress, clear to auscultation Gastrointestinal: normoactive bowel sounds, soft, non-tender abdomen Skin: warm Musculoskeletal: full muscle strength Neurologic: AAOx3 Psychiatric: interacting appropriately ICD10 Worksheet Patient Problems: Problems Problem Status Onset Headache Acute Hypertensive emergency Acute Stroke due to embolism of cerebellar artery Acute
--- NOTE | 2016-12-28 19:17 | GCON ---
[f rep st] CONSULTATION DATE OF CONSULTATION: 12/28/2016 Critical Care Consult HISTORY OF PRESENT ILLNESS: This patient is a 56-year-old female with a history of hypertension, who was admitted on the with hypertensive urgency. At that time, she was uncertain about her medic ations, but thought that something had been changed in the last several weeks. She presented in the evening that day with a headache and had a syncopal episode. She apparently had an unremarkable CT s can at that time, but her blood pressure was quite high at 217/108, so she was initially admitted for observation in the step-down unit, and her blood pressure was treated. Syncope was thought to be re lated to her hypertension and nausea, vomiting associated with that. She had improvement with her bl ood pressure, but her headache persisted. A subsequent MRI showed a variety of subacute strokes and increasing edema. A neurologic consultation at that time added dexamethasone and gabapentin, and her headache improved substantially with better blood pressure control. REVIEW OF SYSTEMS: Otherwise negative. PAST MEDICAL HISTORY: Includes hypertension, a Chiari malformation noted on her MRI. SOCIAL HISTORY: She is a nonsmoker. No alcohol or IV drug use. FAMILY HISTORY: Includes hypertension. MEDICATIONS: Currently include Dilaudid, gabapentin, and dexamethasone, as well as Lipitor. ALLERGIES: None. EXAM: VITAL SIGNS: She had a blood pressure 146/69, heart rate of 65, respirations 16, oxygen satur ation 96% on room air. GENERAL: She was Indonesian-speaking only, though family helped to interpret. She was morbidly obese but in no apparent distress. HEENT: Pupils equally round and react to light. Nonicteric and noninjected. Mucous membranes are moist without erythema or exudate. NECK: Supple without adenopathy or jugular vein distention. LUNGS: Breath sounds clear to auscultation bilatera lly, though distant without wheezes, rubs or rales. HEART: Had a regular rate and rhythm without ob vious murmur, rub, or gallop. ABDOMEN: Soft, nontender, nondistended, but obese. EXTREMITIES: Neva w no clubbing, cyanosis, or edema. NEUROLOGIC: Nonfocal, including cranial nerves and deep tendon r eflexes. OBJECTIVE DATA: Includes her basic metabolic panel from today which is essentially normal. The MRI as described above. Repeat head CT that was performed today showed no change with the left cerebella r and right occipital infarcts. ASSESSMENT AND PLAN: Stroke, thought to be embolic in nature, though the exact cause is unknown at t his time since angiography failed to reveal significant stenosis. She has been evaluated by both Natacha rology and Neurosurgery. She will continue on gabapentin and dexamethasone as well as physical thera py, occupational therapy, and maintaining her blood pressure. I anticipate she will probably leave t he intensive care unit today. /[id number]/MODL
[2016-12-28] MEDS: ENALAPRIL MALEATE 20 MG TAB PO SCH (20:16)
[2016-12-28] MEDS: LABETALOL HCL 5 MG/ML 20 ML MDV IVP PRN ×2 (21:31→21:56)
[2016-12-29] MEDS: ASPIRIN 325 MG TAB PO SCH (08:43)
[2016-12-29] MEDS: DEXAMETHASONE 4 MG/ML VIAL IVP SCH ×2 (08:44→20:43)
[2016-12-29] MEDS: GABAPENTIN 100 MG CAP PO SCH ×3 (08:44→20:43)
[2016-12-29] MEDS: ENOXAPARIN 40 MG/0.4 ML SYR SC SCH (08:44)
[2016-12-29] MEDS: ATORVASTATIN CALCIUM 40 MG TAB PO SCH (08:44)
[2016-12-29] MEDS: LABETALOL HCL 100 MG TAB PO SCH ×2 (08:44→20:43)
--- NOTE | 2016-12-29 11:17 | HOSPPROG ---
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 Has known chiari malformation which may be contributing. Neurosurgery following. CTA neg. Carotids patent. Query embolic source, no A fib on tele, personally reviewed and interpreted. D/W neuro. -cont neurochecks, transfer to -cont to monitor on telemetry, will need prolonged cardiac event monitor as outpt -echo without e/o thrombus -Cont ASA, atorvastatin 80 -wean dex to 4 mg daily tomorrow, then off -stat CT for any acute neurologic changes and page neurosurgery -PT/OT Hypertension - Suboptimal control, Goal BP <140/90 -Add HCTZ -Cont Labetalol, Enalapril (could up-titrate the latter) -PRN IV Labetalol for SBP >160 Poor oral intake - passed swallow eval, appetite improved -dc IVF's DVT PPLX - Lovenox Full code Dispo - cont inpt for ongoing management of acute / subacute CVA, stable for transfer to today Subjective: Pt feels much better. Headache improved. No N/V. No dizziness. Up in chair today, eating better. Family at bedside. Objective: Vital Signs Temp Pulse Resp BP Pulse Ox 37.0 C 59 L 10 L 162/68 H 99 12/29/16 08:00 12/29/16 08:00 12/29/16 08:00 12/29/16 08:00 12/29/16 08:00 Laboratory Results 12/28/16 06:00 12/28/16 12/29/16 12/30/16 05:59 05:59 05:59 Intake Total 2803 3082 Output Total 350 Balance 2453 3082 PT 12.6 SEC (12.0-15.0) 12/25/16 19:40 INR 0.95 (0.83-1.16) 12/25/16 19:40 - Physical Exam Constitutional: no apparent distress Eyes: PERRL Ears, Nose, Mouth, Throat: moist mucous membranes Cardiovascular: regular rate and rhythym Respiratory: no respiratory distress Gastrointestinal: normoactive bowel sounds, soft, non-tender abdomen Skin: warm Musculoskeletal: full muscle strength Neurologic: AAOx3 Psychiatric: interacting appropriately ICD10 Worksheet Patient Problems: Problems Problem Status Onset Headache Acute Hypertensive emergency Acute Stroke due to embolism of cerebellar artery Acute
[2016-12-29] MEDS: LABETALOL HCL 5 MG/ML 20 ML MDV IVP PRN (11:59)
[2016-12-29] MEDS: HYDROCHLOROTHIAZIDE 25 MG TAB PO SCH (12:08)
--- NOTE | 2016-12-29 12:41 | NEUSURGPN ---
Assessment/Plan: A: 56 yo F with left cerebellar and right occipital stroke. Neurosurgery consulted for watch for possible need for crani. P: -Repeat HCT stable 12/29- this am doing better than days prior still with headache but more alert, sitting in chair -Ok for Q4 hour neuro checks -Stroke management per neurology -Would require suboccipital craniotomy if she develops worsening hydrocephalus but exam has been stable so unlikely and HCT stable -Pt d/w Dr England -Call NS with any neuro changes Subjective: Patient sitting in chair. States she has some headaches still but feeling better than days prior. Balance is improving. Denies nausea. Objective: Awake and alert NAD VSS CN II-XII grossly intact MAEx4 Motor 5/5 BUE/BLE - Physician Discussed Patient with : [facility] Physical Exam - Vitals, I&O, Labs I and O 12/28/16 12/29/16 12/30/16 05:59 05:59 05:59 Intake Total 2803 3082 Output Total 350 Balance 2453 3082 Weight 91 kg 87.2 kg Intake: Oral (ml) 500 1700 IV Infused (ml) 2303 1382 POTASSIUM Cl (KCl) 20 meq 2303 1382 In D5w Ns 1,000 ml @ 125 mls/hr IV CONT TOMAS Rx#: [id number] Output: Urine (ml) 350 Bedpan 350 Other: Number of Voids Bedpan 4 Toilet 1 Vital Signs Temp Pulse Resp BP Pulse Ox 37.0 C 70 10 L 146/67 H 99 12/29/16 08:00 12/29/16 11:59 12/29/16 08:00 12/29/16 12:08 12/29/16 08:00 Laboratory Results 12/28/16 06:00 ICD10 Worksheet Patient Problems: Problems Problem Status Onset Headache Acute Hypertensive emergency Acute Stroke due to embolism of cerebellar artery Acute
--- NOTE | 2016-12-29 13:07 | PDINTPN ---
Buckle Frame Shaper Progress Note Assessment/Plan: Assessment/plan: 56 F admitted 12/26 with N/V, syncope and BP 217/108 after possible recent medication change with H HTN. She was treated for hypertensive urgency but complained of ongoing severe headache so MRI was performed showing subacute infarct in posterior cerebellum, smaller anterior cerebellar infarct, and subacute cortical infarct in the right posterior occipital lobe. She had a neurology consult and was eventually treated with dexamethasone and gabapentin ( edema) before her headache and BP were better controlled. * CVA- likely embolic though no afib and echo unremarkable and normal CTA including carotids. Following neuro exam * HTN- modest control with labetolol and enalapril. HCTZ added 12/29 * OK for floor Subjective: Much better today with near complete resolution of headache and better BP control Objective: Vital Signs Temp Pulse Resp BP Pulse Ox 37.0 C 70 10 L 146/67 H 99 12/29/16 08:00 12/29/16 11:59 12/29/16 08:00 12/29/16 12:08 12/29/16 08:00 Laboratory Results 12/28/16 06:00 12/28/16 12/29/16 12/30/16 05:59 05:59 05:59 Intake Total 2803 3082 Output Total 350 Balance 2453 3082 PT 12.6 SEC (12.0-15.0) 12/25/16 19:40 INR 0.95 (0.83-1.16) 12/25/16 19:40 Physical Exam - Physical Exam General Appearance: WD/WN, alert, no apparent distress, obese EENT: PERRL/EOMI Neck: supple Respiratory: lungs clear, normal breath sounds, No respiratory distress, No rales Cardiac/Chest: regular rate, rhythm, No edema Abdomen: normal bowel sounds, non-tender, soft, No distended Skin: normal color, warm/dry Lymphatic: no adenopathy Extremities: No pedal edema Neuro/Psych: alert, normal mood/affect, oriented x 3 ICD10 Worksheet Patient Problems: Problems Problem Status Onset Headache Acute Hypertensive emergency Acute Stroke due to embolism of cerebellar artery Acute
--- NOTE | 2016-12-29 14:57 | NEUROPROG ---
Assessment: BACKGROUND: 56 year old right-handed woman with a hx of HTN admitted for episode of posterior headache, nausea, dizziness and episode of LOC. Found to have left cerebellar and right occipital cortex acute ischemic stroke. INTERVAL HISTORY: Family at bedside. Headache continues to improve - only trace amount today - she is quite comfortable. Ambulated halls today and feels steady on feet. Some residual dizziness when turning her head fast. Denies nausea/vomiting, vision loss, double vision, LOC. No new weakness, sensory loss, language/speech problems, ataxia. Hearing without change. EXAM: VS reviewed in EMR. SBPs 130s - 170s last 24h NIHSS 0 Pupils equally reactive, no nystagmus, no skew DATA: LDL 125 A1c 6 TTE no mass/shunt PERSONALLY REVIEWED/INTERPRETED DATA: MRI brain wo - acute ischemia in the left PICA territory and right occipital cortex, incidental Chiari I CTA head/neck - patent vessels CT head wo 12/28 - stable cerebellar edema without change in compression of the 4th ventricle IMPRESSION: // ACUTE ISCHEMIC STROKE // CEREBELLAR EDEMA FROM ISCHEMIC STROKE - STABLE // POST-STROKE WALSH // HTN Patient with ischemic stroke of the left PICA territory of the cerebellum and the right occipital cortex. CTA showed patent posterior circulation. Pattern invokes a sense of embolism, perhaps cardioembolism into the left vertebral artery with distal movement to the basilar and the right RESPITE WORKER, but similar means of embolic transit could have happened from large artery-to- artery embolization. No evidence of PFO on TTE, so paradoxical embolization ruled out. She is exiting peak edema window (today is stroke day 5). - OK to transfer to floor later today - cont current antiplatelet - goal normotension - intervene for sustained SBPs > 160 - statin for LDL goal < 70 - A1c at goal < 6.5 - cont gabapentin for post-stroke WALSH - wean off dexamethasone - maintain euvolemia and normothermia, avoid hypoglycemia - keep HOB at 30 degrees - appreciate neurosurgery availability - PT/OT/UNLOADER OPERATOR consults - stroke education - family, patient, nursing advised to call for any clinical change, especially decreased LOC, nausea/vomiting, increasing WALSH, diplopia, ataxia or anything of clinical concern - will need mobile cardiac outpatient telemetry to screen for afib - followup neurology clinic 6 weeks - followup PCP 1 week after discharge - followup cardiology for 30 day Holter vs LINQ 50 mins in direct patient care activities on the floor Objective: Vital Signs Temp Pulse Resp BP Pulse Ox 37.0 C 70 10 L 146/67 H 99 12/29/16 08:00 12/29/16 11:59 12/29/16 08:00 12/29/16 12:08 12/29/16 08:00 Laboratory Results 12/28/16 06:00 12/28/16 12/29/16 12/30/16 05:59 05:59 05:59 Intake Total 2803 3082 Output Total 350 Balance 2453 3082 PT 12.6 SEC (12.0-15.0) 12/25/16 19:40 INR 0.95 (0.83-1.16) 12/25/16 19:40 Allergies/Adverse Reactions: No Known Allergies Allergy (Unverified 12/25/16 19:48)
--- NOTE | 2016-12-29 16:56 | ASMTCMCOM ---
CM Note CM Note Notes: Reviewed chart re: d/c poc, pt's progress. Per rounds, notes, pt improving, will likely tx to floor today. OT currently rec [facility]; PT cont to rec Inpt Rehab. Yane Mejia following from inpt rehab; will re-eval 12/31/16. CM will cont to follow. Date Signed: 12/29/2016 04:55 PM Electronically Signed By:Vanita Moss RN
[2016-12-29] MEDS: ENALAPRIL MALEATE 20 MG TAB PO SCH (20:43)
[2016-12-30 06:21] LABS: ANION GAP 10 mEq/L (8-16); CALCIUM 9.2 mg/dL (8.5-10.4); CARBON DIOXIDE 27 mEq/l (22-31); CHLORIDE 101 mEq/L (97-110); CREATININE 0.6 mg/dL (0.6-1.0); GLOMERULAR FILTRATION RATE > 60; GLUCOSE 116 mg/dL (70-100); POTASSIUM 4.1 mEq/L (3.5-5.2); SODIUM 138 mEq/L (134-144)
--- NOTE | 2016-12-30 08:36 | HOSPPROG ---
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 Treated with IV dexamethasone and gabapentin. Has known chiari malformation which may be contributing. Neurosurgery following. CTA neg. Carotids patent. Query embolic source, no A fib on tele, personally reviewed and interpreted. D/W neurosurg this am at the bedside. -cont neurochecks -cont to monitor on telemetry, will need prolonged cardiac event monitor as outpt. Discussed with Dr. De León, who recommends LINQ and will arrange to be done prior to d/c, possibly tomorrow. I'll keep her NPO after midnight. -echo without e/o thrombus -Cont ASA, atorvastatin 80 -weaning off dex, last dose today -stat CT for any acute neurologic changes and page neurosurgery -cont PT/OT Hypertension - Improving, Goal BP <140/90 -Added HCTZ yesterday -Cont Labetalol, Enalapril (could up-titrate the latter) -PRN IV Labetalol for SBP >160 DVT PPLX - Lovenox Full code Dispo - cont inpt for ongoing management of acute / subacute CVA. PT/OT to coordinate recommendations regarding inpt rehab vs home with outpt rehab. Can likely dc tomorrow after LINQ placement. I suspect she'll be best served by inpt rehab stay. Will d/w CM. Subjective: Pt feels "89% better". Headache nearly resolved. No double vision. Ambulating, though still afraid she'll fall over when she walks. Less dizzy. Overall, she is very pleased with her improvement. Eating better. Objective: Vital Signs Temp Pulse Resp BP Pulse Ox 37.1 C 71 14 132/66 H 93 12/30/16 00:00 12/30/16 00:00 12/30/16 00:00 12/30/16 00:00 12/30/16 00:00 Laboratory Results 12/30/16 05:43 12/29/16 12/30/16 12/31/16 05:59 05:59 05:59 Intake Total 3082 Balance 3082 PT 12.6 SEC (12.0-15.0) 12/25/16 19:40 INR 0.95 (0.83-1.16) 12/25/16 19:40 - Physical Exam Constitutional: no apparent distress Eyes: PERRL Ears, Nose, Mouth, Throat: moist mucous membranes Cardiovascular: regular rate and rhythym Respiratory: no respiratory distress, clear to auscultation Gastrointestinal: normoactive bowel sounds, soft, non-tender abdomen Skin: warm Musculoskeletal: full muscle strength Neurologic: AAOx3 Psychiatric: interacting appropriately ICD10 Worksheet Patient Problems: Problems Problem Status Onset Headache Acute Hypertensive emergency Acute Stroke due to embolism of cerebellar artery Acute
[2016-12-30] MEDS: GABAPENTIN 100 MG CAP PO SCH ×3 (08:48→21:06)
[2016-12-30] MEDS: ATORVASTATIN CALCIUM 40 MG TAB PO SCH (08:48)
[2016-12-30] MEDS: HYDROCHLOROTHIAZIDE 25 MG TAB PO SCH (08:48)
[2016-12-30] MEDS: ENOXAPARIN 40 MG/0.4 ML SYR SC SCH (08:49)
[2016-12-30] MEDS: DEXAMETHASONE 4 MG/ML VIAL IVP SCH (08:49)
[2016-12-30] MEDS: LABETALOL HCL 100 MG TAB PO SCH ×2 (08:49→21:06)
[2016-12-30] MEDS: ASPIRIN 325 MG TAB PO SCH (08:49)
--- NOTE | 2016-12-30 11:31 | NEUSURGPN ---
Assessment/Plan: A: 56 yo F with left cerebellar and right occipital stroke. Neurosurgery consulted for watch for possible need for crani. P: -Neuro stable and improving each day with only mild headache this am. -Ok for Q4 hour neuro checks -Stroke management per neurology -No neurosurgical indication at this time as pativerona continues to improve in her exam each day. -Dipso per primary team but likely home or to rehab within the next day or so. -PT/OT as tolerated -Pt d/w Dr England -Call NS with any neuro changes Subjective: Patient laying in bed bed alert and states she feels even better today at "89% of normal". States she has some headaches still but feeling better than days prior. Balance is improving but with quick motions it takes some time to collect herself. Denies nausea. Objective: Awake and alert NAD VSS CN II-XII grossly intact MAEx4 Motor 5/5 BUE/BLE - Physician Discussed Patient with Dr.: [facility] Physical Exam - Vitals, I&O, Labs I and O 12/29/16 12/30/16 12/31/16 05:59 05:59 05:59 Intake Total 3082 Balance 3082 Weight 86.5 kg Intake: Oral (ml) 1700 IV Infused (ml) 1382 POTASSIUM Cl (KCl) 20 meq 1382 In D5w Ns 1,000 ml @ 125 mls/hr IV CONT TOMAS Rx#: [id number] Other: Intake Quantity Yes Sufficient Number of Voids Toilet 1 2 Vital Signs Temp Pulse Resp BP Pulse Ox 37.1 C 60 14 144/71 H 93 12/30/16 00:00 12/30/16 08:49 12/30/16 00:00 12/30/16 08:49 12/30/16 00:00 Laboratory Results 12/30/16 05:43 ICD10 Worksheet Patient Problems: Problems Problem Status Onset Headache Acute Hypertensive emergency Acute Stroke due to embolism of cerebellar artery Acute
--- NOTE | 2016-12-30 14:02 | NEUROPROG ---
Assessment: BACKGROUND: 56 year old right-handed woman with a hx of HTN admitted for episode of posterior headache, nausea, dizziness and episode of LOC. Found to have left cerebellar and right occipital cortex acute ischemic stroke. INTERVAL HISTORY: Family at bedside. Headache continues to improve - only trace amount today - she is quite comfortable. Some residual dizziness when turning her head fast, particularly to the left. Denies nausea/vomiting, vision loss, double vision, LOC. No new weakness, sensory loss, language/speech problems, ataxia. Hearing without change. EXAM: VS reviewed in EMR. SBPs 130s - 160s last 24h NIHSS 0 Pupils equally reactive, no nystagmus, no skew DATA: LDL 125 A1c 6 TTE no mass/shunt PERSONALLY REVIEWED/INTERPRETED DATA: MRI brain wo - acute ischemia in the left PICA territory and right occipital cortex, incidental Chiari I CTA head/neck - patent vessels CT head wo 12/28 - stable cerebellar edema without change in compression of the 4th ventricle IMPRESSION: // ACUTE ISCHEMIC STROKE // CEREBELLAR EDEMA FROM ISCHEMIC STROKE - STABLE // POST-STROKE WALSH // HTN Patient with ischemic stroke of the left PICA territory of the cerebellum and the right occipital cortex. CTA showed patent posterior circulation. Pattern invokes a sense of embolism, perhaps cardioembolism into the left vertebral artery with distal movement to the basilar and the right TECHNICIAN PREVENTATIVE MEDICINE, but similar means of embolic transit could have happened from large artery-to- artery embolization. No evidence of PFO on TTE, so paradoxical embolization ruled out. She is out of the peak edema window - today is stroke day 6. - cont current antiplatelet - goal normotension - intervene for sustained SBPs > 160 - statin for LDL goal < 70 - A1c at goal < 6.5 - cont gabapentin for post-stroke WALSH - maintain euvolemia and normothermia, avoid hypoglycemia - keep HOB at 30 degrees - appreciate neurosurgery availability - PT/OT/WAREHOUSE ANALYST consults - stroke education - family, patient, nursing advised to call for any clinical change, especially decreased LOC, nausea/vomiting, increasing WALSH, diplopia, ataxia or anything of clinical concern - scheduled to have LINQ implanted tomorrow - followup neurology clinic 6 weeks - followup PCP 1 week after discharge - followup cardiology for post-LINQ monitoring - will sign off, please recall PRN 25 mins in direct patient care activities on the floor Objective: Vital Signs Temp Pulse Resp BP Pulse Ox 36.6 C 70 17 133/65 H 94 12/30/16 12:00 12/30/16 12:00 12/30/16 12:00 12/30/16 12:00 12/30/16 12:00 Laboratory Results 12/30/16 05:43 12/29/16 12/30/16 12/31/16 05:59 05:59 05:59 Intake Total 3082 Balance 3082 PT 12.6 SEC (12.0-15.0) 12/25/16 19:40 INR 0.95 (0.83-1.16) 12/25/16 19:40 Allergies/Adverse Reactions: No Known Allergies Allergy (Unverified 12/25/16 19:48)
[2016-12-30] MEDS: ENALAPRIL MALEATE 20 MG TAB PO SCH (21:05)
[2016-12-31] MEDS ORDERED: LABETALOL HCL 100 MG TAB PO SCH
[2016-12-31] MEDS ORDERED: GABAPENTIN 100 MG CAP PO SCH
[2016-12-31] MEDS: ENOXAPARIN 40 MG/0.4 ML SYR SC SCH (08:12)
[2016-12-31] MEDS: GABAPENTIN 100 MG CAP PO SCH ×2 (08:13→16:49)
[2016-12-31] MEDS: LABETALOL HCL 100 MG TAB PO SCH (08:13)
[2016-12-31] MEDS: HYDROCHLOROTHIAZIDE 25 MG TAB PO SCH (08:13)
[2016-12-31] MEDS: ASPIRIN 325 MG TAB PO SCH (08:13)
[2016-12-31] MEDS: ATORVASTATIN CALCIUM 40 MG TAB PO SCH (08:13)
[2016-12-31] MEDS ORDERED: LIDOCAINE 1% 300 MG/30 ML SDV SC ONE (12:29)
--- NOTE | 2016-12-31 12:33 | HOSPPROG ---
Hospitalist Progress Note Assessment/Plan: 56 yo F w/PMH of HTN and chiari malformation admitted with subacute CVA # Subacute cerebellar and right occipital lobe CVA - CTA head and neck negative , no a fib thus far on tele but still concerning for possible embolic source, echo w/o thrombus etc. NSG/neuro following. Plan to dc with LINQ hopefully placed today. Continue asa, statin. Will need pt/ot after dc # cerebellar edema/tonsillar (brain) herniation: with associated severe WALSH which has now improved. Has underlying chiari malformation possibly contributing. Now off of dex. No signs of worsening herniation # htn: has improved, continued on labetalol, enalapril, hctz # dispo: will dc today after LINQ placed Patient new to my care. Old records reviewed and summarized as above. Patient interviewed with hay buckler present at bedside Subjective: no significant overnight events, no headache today, feeling well, eager to go home Objective: Vital Signs Temp Pulse Resp BP Pulse Ox 37.2 C 54 L 14 122/58 H 96 12/31/16 07:56 12/31/16 07:56 12/31/16 07:56 12/31/16 07:56 12/31/16 07:56 Laboratory Results 12/30/16 05:43 12/30/16 12/31/16 01/01/17 05:59 05:59 05:59 Intake Total 500 Balance 500 PT 12.6 SEC (12.0-15.0) 12/25/16 19:40 INR 0.95 (0.83-1.16) 12/25/16 19:40 awake alert nad anicteric op clear rrr no mrg cta b soft nt nd no cce warm dry well perfused oriented appropriate ICD10 Worksheet Patient Problems: Problems Problem Status Onset Stroke due to embolism of cerebellar artery Acute Headache Acute Hypertensive emergency Acute
--- NOTE | 2016-12-31 12:52 | PDDCSUM ---
Discharge Summary Discharge Summary: Dates of service 12/25-12/31/16 consultations: neurology, neurosurgery, pulmonary, cardiology Procedures performed: head/neck cta, brain mri, echo, serial brain ct's, LINQ placement Hospital course by problem: # Subacute cerebellar and right occipital lobe CVA - CTA head and neck negative , no a fib thus far on tele but still concerning for possible embolic source, echo w/o thrombus etc. NSG/neuro following. LINQ placed prior to dc for eval for occult a fib. Continue asa, statin. Will need pt/ot after dc # cerebellar edema/tonsillar (brain) herniation: with associated severe WALSH which has now improved. Has underlying chiari malformation possibly contributing. Now off of dex. No signs of worsening herniation # htn: has improved, continued on labetalol, enalapril, hctz dc home f/u with neurology/cardiology >35 min spent in dc more than half in coordination of care
[2016-12-31 12:57] VITALS: BP 135/70; PULSE 56; TEMP 98
[2016-12-31 12:58] VITALS: RESP 16; O2SAT 99
--- NOTE | 2016-12-31 14:08 | ASMTCMCOM ---
CM Note CM Note Notes: Patient has been discharged. Patient lives with family and has a great deal of support at home. She has [employer] insurance which is for undocumented people and does not pay for services outside the hospital. PT recommending that patient go home with 24 hr care. OT's notes from 12/30/16 recommended In-pt rehab but without insurance family assistance will be what is available for her at this time. Date Signed: 12/31/2016 02:05 PM Electronically Signed By:Elizabeth Werner LCSW
--- NOTE | 2016-12-31 16:53 | ASMTCMCOM ---
CM Note CM Note Notes: Patient has Family interested in possible therapy for patient. Hospitalist wrote out a script for out-pt PT/OT. [facility] closed at this time so family unable to get medications filled. Medications Mapped for tonight. Date Signed: 12/31/2016 04:53 PM Electronically Signed By:Elizabeth Werner LCSW
--- NOTE | 2017-01-01 00:10 | CPIP ---
[f rep st] INVASIVE CARDIAC PROCEDURE INDICATIONS: The patient is 56 years old with a history of cryptogenic stroke. PROCEDURE: Implantation of a LINQ. TECHNIQUE: Following informed consent and in the fasting state, the patient was brought to the CVC. The 4th intercostal space was identified and infiltrated with 1% lidocaine. Using the #10 blade, a 1 cm incision was made. The LINQ was then injected underneath the skin and the wound closed with 2 s taples. COMPLICATIONS: None. DISPOSITION: The patient will be returned to the room. Further care per the primary team. /[id number]/MODL
--- NOTE | 2017-01-01 09:12 | ASDISCHSUM ---
Discharge Information Plan Status:Home with No Needs Medically Cleared to Leave:12/31/2016 Discharge Date:12/31/2016 05:10 PM CM D/C Disposition:Home, Routine, Self-Care ADT D/C Disposition:Home Health Service Projected Discharge Date:12/31/2016 04:00 PM Transportation at D/C:Family Discharge Delay Reason: Follow-Up Date:12/31/2016 04:00 PM Discharge Slot: Final Diagnosis:CVA, Chiari malformation & HTN Placement Information Patient Contact Information Contact Name:PHILIPP Relationship:Daughter Address:[address] City:[place] Alternate Phone: State/Zip Code:[place] [phone] Email: Financial Information Financial Class:Self-Pay Primary Plan Desc:[employer] CARE Primary Plan Number:99 Secondary Plan Desc: Secondary Plan Number: Assessment Information [facility] CM Progress Note CM Note CM Note Notes: Pt is a 56 y/o female admitted w/ hypertension, dizziness and nausea. CM consulted w/ VERO Asher regarding pts care. PT/OT are ordered and awaiting recommendations. CM to follow. Date Signed: 12/26/2016 02:54 PM Electronically Signed By:SULEMAN Villalobos [facility] CM Progress Note CM Note CM Note Notes: PT/OT recommending inpt rehab. Inpt rehab is following and will re-assess on Saturday. CM will continue to follow. Date Signed: 12/28/2016 03:46 PM Electronically Signed By:LYLE Monet [facility] CM Progress Note CM Note CM Note Notes: Reviewed chart re: d/c poc, pt's progress. Per rounds, MD notes, pt improving, will likely tx to floor today. OT currently rec [facility]; PT cont to rec Inpt Rehab. Yane Mejia following from inpt rehab; will re-eval 12/31/16. CM will cont to follow. Date Signed: 12/29/2016 04:55 PM Electronically Signed By:Vanita Moss RN [facility] CM Progress Note CM Note CM Note Notes: Patient has been discharged. Patient lives with family and has a great deal of support at home. She has [employer] insurance which is for undocumented people and does not pay for services outside the hospital. PT recommending that patient go home with 24 hr care. OT's notes from 12/30/16 recommended In-pt rehab but without insurance family assistance will be what is available for her at this time. Date Signed: 12/31/2016 02:05 PM Electronically Signed By:Elizabeth Werner LCSW [facility] CM Progress Note CM Note CM Note Notes: Patient has Family interested in possible therapy for patient. Hospitalist wrote out a script for out-pt PT/OT. [facility] closed at this time so family unable to get medications filled. Medications Mapped for tonight. Date Signed: 12/31/2016 04:53 PM Electronically Signed By:Elizabeth Werner LCSW Intervention Information
== END 2016-12-31 17:10 | disposition home or self-care (01) | DRG 40 ==
LOC: EDUNIT# → EDBD → F2W 23:34 → F2N 12-26 15:33 → OBSVTOIN 12-26 16:01
PROVIDERS: ADMIT Hospitalist; ATTEND Hospitalist
PROC: 0JH60PZ Insertion of Cardiac Rhythm Related Device into Chest Subcutaneous Tissue and Fascia, Open Approach (ICD-10-PCS; principal; 2016-12-31)
DX: I63.9 Cerebral infarction, unspecified (principal); G93.5 Compression of brain; G93.6 Cerebral edema; I16.1 Hypertensive emergency; R73.9 Hyperglycemia, unspecified
CPT/HCPCS: 82947-QW; 92507-GN; 92523-GN; 92610-GN; 96374; 97116-GP; 97162-GP; 97166-GO; 97530-GO; 97530-GP; 97535-GO; C1764; G0378; J1100; J1170; J1650; J2405; J3490; Q9967

== ENCOUNTER 2017-08-24 15:43 | Emergency (ER) | payer MEDICAID, OTHER ==
--- NOTE | 2017-08-24 15:57 | CPEKG ---
Heart Rate: 61 RR Interval: 984 P-R Interval: 148 QRSD Interval: 88 QT Interval: 360 QTC Interval: 363 P Cut Off: 20 QRS Cut Off: 6 T Wave Cut Off: 10 EKG Severity - BORDERLINE ECG - EKG Impression: SINUS RHYTHM EKG Impression: BORDERLINE T ABNORMALITIES, ANTERIOR LEADS Electronically Signed By: Oj Diehl 24-Aug-2017 22:12:47
[2017-08-24] MEDS ORDERED: NS 500 ML IV ONE (16:02)
[2017-08-24 16:13] LABS: PLATELET COUNT 159 10^3/uL (150-400)
--- NOTE | 2017-08-24 16:22 | EDPHY ---
H & P Time Seen by Provider: 08/24/17 16:01 HPI/ROS: HPI Lightheaded, difficulty speaking. 56-year-old female by private vehicle with her . 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 She had a negative CT angiogram of her head and her neck at that time. She currently has an implantable cafe attendant looking for a possible arrhythmia and therefore an etiology of embolic stroke. She cannot have an MRI secondary to this. She reports that at approximately 3:00 p.m. She was standing and developed sudden onset lightheadedness with associated blurry vision and dysarthric speech. She states that she knew what she wanted to say but was having difficulty speaking correctly because her mouth and lips and tongue would not were correctly. All of the symptoms resolved by the time she got to the emergency department. She estimates this lasted about a half an hour. ROS: Constitutional: No fever, no chills. As above. Eyes: No discharge. As above. ENT: No sore throat. No nasal congestion or rhinorrhea. Respiratory: No cough. No shortness of breath. Cardiac: No chest pain, no palpitations. Gastrointestinal: No abdominal pain, no vomiting, no diarrhea. Genitourinary: No hematuria. No dysuria or increased frequency with urination. Musculoskeletal: No back pain. No neck pain. No myalgias or arthralgias. Skin: No rashes. Neurological: No headache. No focal weakness or altered sensation. As above. Past medical history: Hypertensive urgency with associated cerebellar and right occipital lobe CVA November of 2016, hypertension. As above. Social history: and here with her . Nonsmoker. No alcohol. Physical Exam: General Appearance: Alert, no distress. This patient is responding to questions appropriately and in full sentences. This patient appears well- hydrated and well-nourished. Eyes: Pupils equal and round at 3-2 mm bilaterally, no pallor or injection. No lid edema, erythema or injection. ENT, Mouth: Mucous membranes are moist. No tongue lacerations or abrasions. The pharyngeal tissues are unremarkable. No edema or swelling. No asymmetry suggestive of abscess. No erythema or exudates. Respiratory: There are no retractions, lungs are clear to auscultation with good air movement bilaterally. Cardiovascular: Regular rate and rhythm. No murmur. Gastrointestinal: Abdomen is soft and nontender, no masses, bowel sounds normal. No focal tenderness at McBurney's point. No Johnson sign. Neurological: Motor sensory function is grossly intact. Cranial nerves are normal. Speech and cognitive function are normal. Gait is normal. Skin: Warm and dry, no rashes. Musculoskeletal: Neck is supple and nontender. Extremities are symmetrical. All joints range without pain or impingement. Psychiatric: No agitation. No depression. Database: EKG: EKG time is 3:55 p.m.; EKG shows a narrow complex normal sinus rhythm with a ventricular rate of 61. The HI, QRS, QT intervals are within normal limits. There are no ST-T wave changes indicative of ischemic or injury pattern. No evidence of right heart strain. Interpreted by me. Imaging: CT head without contrast: Left cerebellar, right occipital lobe infarcts have decreased in size appropriate with temporal healing. Results discussed with staff radiologist Dr. Sree Masterson. Please see his report for further details. Procedures: Emergency department course: IV placed. She was placed on a cafe attendant. EKG obtained and reviewed by myself. Vital signs reviewed. She is hypertensive. Blood pressure at 4 8:00 p.m. Is 160/89. change management specialist shows a narrow complex sinus rhythm. Secondary to her rhythm monitor implanted in her right chest she is unable to go through an MRI. CT noncontrast will initially be obtained. I reviewed her medical records. Normal CTA of the brain and neck from November of 2016. 6:00 p.m., patient re-evaluated with elevator installer. Repeat neurologic Assessment is nonfocal. She feels fine and has been asymptomatic since being in the emergency department. I discussed the results of her diagnostic workup with her and her in detail. I discussed admission for observation overnight. She declines admission. I discussed the risks of declining admission with her understanding. At this time she wants to go home and she will follow up with her primary care physician and sap bw architect at [facility] next week. She can easily return to the emergency department if her symptoms return. The patient competently engages in shared decision making. They demonstrate capacitance to make decisions. She understands for follow-up. Return to emergency department precautions thoroughly discussed with her. All of her questions were answered. She was discharged in good condition with her . Differential Diagnosis: The differential diagnosis on this patient includes but is not limited to near syncope, hypertensive emergency, TIA. This represents a partial list of diagnoses considered. These considerations are based on history, physical exam , past history, reassessment and diagnostic testing. Smoking Status: Never smoked Constitutional: Initial Vital Signs Temperature (C) 36.7 C 08/24/17 15:46 Heart Rate 65 08/24/17 15:46 Respiratory Rate 16 08/24/17 15:46 Blood Pressure 170/89 H 08/24/17 15:46 O2 Sat (%) 98 08/24/17 15:46 O2 Delivery Mode Room Air Allergies/Adverse Reactions: No Known Allergies Allergy (Unverified 12/25/16 19:48) Home Medications: Medication Instructions Recorded Enalapril Maleate 08/24/17 Gabapentin 08/24/17 HCTZ (*) 08/24/17 Medical Decision Making - Diagnostics Imaging Results: Imaging Impressions Carotid Doppler Study 08/24/17 16:04 Impression: Tortuous carotid arteries are noted bilaterally with no plaque formation or hemodynamically significant stenosis identified. Measurement of carotid stenosis is based on velocity parameters that correlate the residual internal carotid diameter with [place] Symptomatic Carotid Endarterectomy Trial (NASCET) based stenosis levels. Head CT 08/24/17 16:15 Impression: 1. Left cerebellar and right occipital lobe ischemic infarcts have decreased in size consistent with temporal evolution. 2. See above report for additional findings. Results called to Oj Diehl MD on 08/24/2017 at 17:28 - Data Points Laboratory Results: Laboratory Results 08/24/17 16:00 08/24/17 16:00 08/24/17 08/24/17 16:00 16:00 WBC 4.96 10^3/uL 10^3/uL (3.80-9.50) RBC 4.19 10^6/uL 10^6/uL (4.18-5.33) Hgb 11.9 g/dL L g/dL (12.6-16.3) Hct 36.7 % L % (38.0-47.0) MCV 87.6 fL fL (81.5-99.8) MCH 28.4 pg pg (27.9-34.1) MCHC 32.4 g/dL g/dL (32.4-36.7) RDW 15.4 % H % (11.5-15.2) Plt Count 159 10^3/uL 10^3/uL (150-400) MPV 11.5 fL fL (8.7-11.7) Neut % (Auto) 62.3 % % (39.3-74.2) Lymph % (Auto) 28.6 % % (15.0-45.0) Bullock % (Auto) 7.1 % % (4.5-13.0) Eos % (Auto) 1.8 % % (0.6-7.6) Baso % (Auto) 0.2 % L % (0.3-1.7) Nucleat RBC Rel Count 0.0 % % (0.0-0.2) Absolute Neuts (auto) 3.09 10^3/uL 10^3/uL (1.70-6.50) Absolute Lymphs (auto) 1.42 10^3/uL 10^3/uL (1.00-3.00) Absolute Monos (auto) 0.35 10^3/uL 10^3/uL (0.30-0.80) Absolute Eos (auto) 0.09 10^3/uL 10^3/uL (0.03-0.40) Absolute Basos (auto) 0.01 10^3/uL L 10^3/uL (0.02-0.10) Absolute Nucleated RBC 0.00 10^3/uL 10^3/uL (0-0.01) Immature Gran % 0.0 % % (0.0-1.1) Immature Gran # 0.00 10^3/uL 10^3/uL (0.00-0.10) Sodium 142 mEq/L mEq/L (135-145) Potassium 4.0 mEq/L mEq/L (3.3-5.0) Chloride 105 mEq/L mEq/L (97-110) Carbon Dioxide 26 mEq/l mEq/l (22-31) Anion Gap 11 mEq/L mEq/L (8-16) BUN 17 mg/dL mg/dL (7-23) Creatinine 0.7 mg/dL mg/dL (0.6-1.0) Estimated GFR > 60 Glucose 104 mg/dL H mg/dL (70-100) Calcium 8.5 mg/dL mg/dL (8.5-10.4) Medications Given: Discontinued Medications Sodium Chloride (Ns) 500 mls @ 0 mls/hr IV ONCE ONE; Wide Open PRN Reason: Protocol Stop: 08/24/17 16:03 Last Admin: 08/24/17 16:14 Dose: 500 mls Departure - Departure Disposition: Home, Routine, Self-Care Clinical Impression: Transient speech disturbance, Near syncope, History of CVA (cerebrovascular accident) Condition: Good Instructions: Near Syncope (ED) Additional Instructions: Read and follow provided instructions. Follow-up with your primary care physician and [facility] early next week for re-evaluation as discussed. Avoid strenuous activity. Take your medication as prescribed. Return to the emergency department for return of symptoms or other serious concerns. Referrals: NONE *PRIMARY CARE P,. [Primary Care Provider] - As per Instructions [facility] [Provider Group] - As per Instructions Print Language: Yoruba
[2017-08-24 18:03] VITALS: BP 168/88
== END 2017-08-24 18:15 | disposition home or self-care (01) ==
DX: R55 Syncope and collapse (principal); R47.89 Other speech disturbances; E86.9 Volume depletion, unspecified; I10 Essential (primary) hypertension; Z86.73 Personal history of transient ischemic attack (TIA), and cerebral infarction without residual deficits